=== PATIENT | female | born 1955 | race Caucasian/White ===

== ENCOUNTER 2017-07-27 23:04 | Observation (INO) ==
[2017-07-28] MEDS ORDERED: *HR* OxyCODONE/APAP 10/325 TABLET PO PRN (02:26)
[2017-07-28] MEDS ORDERED: Naloxone 0.4 MG/ML INJ IVP PRN (02:50)
[2017-07-28] MEDS ORDERED: Acetaminophen 325 MG TABLET PO PRN (02:50)
[2017-07-28] MEDS ORDERED: Ipratropium/Albuterol Neb 3 ML IH PRN (02:56)
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
[2017-07-28] MEDS: Ipratropium/Albuterol Neb 3 ML IH SCH ×4 (03:37→22:09)
[2017-07-28 04:31] LABS: BUN/Creatinine Ratio 16 (6-26); Blood Urea Nitrogen 10 mg/dL (8-23); Calcium 8.9 mg/dL (8.6-10.3); Carbon Dioxide 28 mEq/L (23-29); Chloride 104 mEq/L (98-107); Glucose 226 mg/dL (70-105); Magnesium 1.8 mg/dL (1.6-2.6); Osmolality,Calculated 296 (280-300); Potassium 3.7 mEq/L (3.5-5.1); Sodium 140 mEq/L (136-145); eGFR For African Americans > 60 (> 60); eGFR For Non-African Americans > 60 (> 60)
[2017-07-28 04:38] LABS: INR 1.4
[2017-07-28 05:00] LABS: Basophils % 0.2 %; Eosinophils % 0.2 %; Immature Granulocytes % 0.5 % (0-4); Red Cell Distribution Width 14.5 % (11.5-14.5)
[2017-07-28 05:02] LABS: Hematocrit 36.6 % (35.3-44.9); Hemoglobin 11.3 g/dL (11.5-15.4); Immature Platelets 4.6 % (1.1-6.1); Lymphocytes # 0.3 K/mcL (0.6-4.6); Lymphocytes % 5.3 %; Mean Corpuscular HGB Conc 30.9 g/dL (31.6-35.5); Mean Corpuscular Hemoglobin 30.1 pg (28.0-33.3); Mean Corpuscular Volume 97.3 fL (83.0-100.0); Mean Platelet Volume 10.6 fL (9.4-12.4); Monocytes # 0.1 K/mcL (0.0-1.3); Monocytes % 2.2 %; Neutrophils # 5.9 K/mcL (1.6-8.9); Red Blood Count 3.76 M/mcL (3.82-4.97); Segmented Neutrophils % 91.6 %
[2017-07-28 05:09] LABS: Platelet Count 97 K/mcL (140-400)
[2017-07-28] MEDS: *HR* Heparin 5,000 UNIT/ML VIAL SQ SCH ×2 (06:16→17:32)
[2017-07-28] MEDS: *HR* OxyCODONE/APAP 10/325 TABLET PO PRN ×3 (06:28→17:32)
[2017-07-28] MEDS ORDERED: Dextrose Gel 15 GM/37.5 ML TUBE PO PRN ×2 (06:40)
[2017-07-28] MEDS ORDERED: *HR* Dextrose 50 % in Water (Syg) 50 ML SYRINGE IVP PRN (06:40)
[2017-07-28] MEDS ORDERED: D5% in Water 1,000 ML IVC PRN (06:40)
[2017-07-28] MEDS ORDERED: ALPRAZolam 1 MG TABLET PO SCH ×2 (09:00→21:00)
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
[2017-07-28] MEDS: Levofloxacin 750 MG/150 ML 750 MG/150 ML BAG IVPB SCH (09:52)
[2017-07-28] MEDS: methylPREDNISolone 125 MG/2 ML VIAL IVP SCH ×2 (09:53→17:31)
[2017-07-28] MEDS: Magnesium Oxide 400 MG TABLET PO SCH (09:53)
[2017-07-28] MEDS: Insulin LISPRO 300 UNITS/3 ML VIAL SQ SCH ×3 (10:16→17:31)
[2017-07-28] MEDS: Budesonide/Formoterol 160/4.5 MDI IH SCH (10:48)
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
[2017-07-28] MEDS: ALPRAZolam 1 MG TABLET PO PRN (15:05)
[2017-07-28] MEDS: Aspirin Enteric Coated 81 MG Tablet PO SCH (15:10)
[2017-07-28] MEDS ORDERED: Insulin LISPRO 300 UNITS/3 ML VIAL SQ SCH (21:00)
[2017-07-29] MEDS: methylPREDNISolone 125 MG/2 ML VIAL IVP SCH ×2 (00:18→08:41)
[2017-07-29] MEDS: *HR* OxyCODONE/APAP 10/325 TABLET PO PRN ×6 (00:30→22:11)
[2017-07-29] MEDS: Ipratropium/Albuterol Neb 3 ML IH SCH ×4 (03:52→22:22)
[2017-07-29] MEDS: *HR* Heparin 5,000 UNIT/ML VIAL SQ SCH ×2 (04:37→17:33)
[2017-07-29 07:10] LABS: Hematocrit 31.9 % (35.3-44.9); Hemoglobin 10.2 g/dL (11.5-15.4); Immature Granulocytes % 0.3 % (0-4); Lymphocytes # 0.4 K/mcL (0.6-4.6); Lymphocytes % 5.5 %; Mean Corpuscular Hemoglobin 30.6 pg (28.0-33.3); Mean Corpuscular Volume 95.8 fL (83.0-100.0); Mean Platelet Volume 10.6 fL (9.4-12.4); Monocytes # 0.3 K/mcL (0.0-1.3); Monocytes % 3.7 %; Neutrophils # 6.7 K/mcL (1.6-8.9); Platelet Count 103 K/mcL (140-400); Red Blood Count 3.33 M/mcL (3.82-4.97); Red Cell Distribution Width 14.4 % (11.5-14.5); Segmented Neutrophils % 90.5 %
[2017-07-29 07:40] LABS: BUN/Creatinine Ratio 32 (6-26); Blood Urea Nitrogen 20 mg/dL (8-23); Calcium 8.8 mg/dL (8.6-10.3); Carbon Dioxide 28 mEq/L (23-29); Chloride 104 mEq/L (98-107); Glucose 239 mg/dL (70-105); Osmolality,Calculated 294 (280-300); Potassium 4.5 mEq/L (3.5-5.1); Sodium 137 mEq/L (136-145); eGFR For African Americans > 60 (> 60); eGFR For Non-African Americans > 60 (> 60)
[2017-07-29] MEDS: ALPRAZolam 1 MG TABLET PO PRN ×2 (07:42→17:35)
[2017-07-29] MEDS: Magnesium Oxide 400 MG TABLET PO SCH (08:40)
[2017-07-29] MEDS: Aspirin Enteric Coated 81 MG Tablet PO SCH (08:41)
[2017-07-29] MEDS: Levofloxacin 750 MG/150 ML 750 MG/150 ML BAG IVPB SCH (08:42)
[2017-07-29] MEDS: Insulin LISPRO 300 UNITS/3 ML VIAL SQ SCH ×3 (08:49→17:34)
[2017-07-29] MEDS: Budesonide/Formoterol 160/4.5 MDI IH SCH (10:31)
[2017-07-29] MEDS ORDERED: *HR* Dextrose 50 % in Water (Syg) 50 ML SYRINGE IVP PRN (16:26)
[2017-07-29] MEDS ORDERED: D5% in Water 1,000 ML IVC PRN (16:26)
[2017-07-29] MEDS ORDERED: Dextrose Gel 15 GM/37.5 ML TUBE PO PRN ×2 (16:26)
[2017-07-29] MEDS: predniSONE 10 MG TABLET PO SCH (17:34)
[2017-07-29] MEDS ORDERED: GuaiFENesin Liq 200 MG/10 ML UDC PO PRN (18:15)
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
[2017-07-30] MEDS: ALPRAZolam 1 MG TABLET PO PRN ×2 (01:52→10:04)
[2017-07-30] MEDS: *HR* OxyCODONE/APAP 10/325 TABLET PO PRN ×4 (02:13→14:33)
[2017-07-30] MEDS: Ipratropium/Albuterol Neb 3 ML IH SCH ×2 (03:36→11:05)
[2017-07-30] MEDS: *HR* Heparin 5,000 UNIT/ML VIAL SQ SCH (06:23)
[2017-07-30 07:38] VITALS: BP 144/75
[2017-07-30 08:26] LABS: BUN/Creatinine Ratio 32 (6-26); Blood Urea Nitrogen 23 mg/dL (8-23); Calcium 9.2 mg/dL (8.6-10.3); Carbon Dioxide 31 mEq/L (23-29); Chloride 104 mEq/L (98-107); Glucose 203 mg/dL (70-105); Osmolality,Calculated 295 (280-300); Potassium 4.2 mEq/L (3.5-5.1); Sodium 138 mEq/L (136-145); eGFR For African Americans > 60 (> 60); eGFR For Non-African Americans > 60 (> 60)
[2017-07-30 08:35] LABS: Hematocrit 33.5 % (35.3-44.9); Hemoglobin 10.4 g/dL (11.5-15.4); Immature Granulocytes % 0.4 % (0-4); Lymphocytes # 0.5 K/mcL (0.6-4.6); Lymphocytes % 6.1 %; Mean Corpuscular Hemoglobin 30.5 pg (28.0-33.3); Mean Corpuscular Volume 98.2 fL (83.0-100.0); Mean Platelet Volume 10.6 fL (9.4-12.4); Monocytes # 0.4 K/mcL (0.0-1.3); Monocytes % 4.6 %; Neutrophils # 7.4 K/mcL (1.6-8.9); Platelet Count 108 K/mcL (140-400); Red Blood Count 3.41 M/mcL (3.82-4.97); Red Cell Distribution Width 14.6 % (11.5-14.5); Segmented Neutrophils % 88.9 %
[2017-07-30] MEDS: predniSONE 10 MG TABLET PO SCH (10:03)
[2017-07-30] MEDS: Magnesium Oxide 400 MG TABLET PO SCH (10:04)
[2017-07-30] MEDS: Aspirin Enteric Coated 81 MG Tablet PO SCH (10:04)
[2017-07-30] MEDS: Levofloxacin 750 MG/150 ML 750 MG/150 ML BAG IVPB SCH (10:04)
[2017-07-30] MEDS: Insulin LISPRO 300 UNITS/3 ML VIAL SQ SCH ×2 (10:11→12:44)
[2017-07-30] MEDS: Budesonide/Formoterol 160/4.5 MDI IH SCH (11:04)
--- NOTE | 2017-07-30 13:57 | Discharge Summary ---
Date of Encounter: 07/30/17 Time of Encounter: 13:57 Hospital course: Ms. Lee is a 62 year old female - Time Spent with Patient Total time spent providing and/or coordinating discharge services: - Discharge Medications Home Medications: Alprazolam [Xanax] 1 mg PO TID 12/31/14 [History] OxyCODONE/APAP 10/325 [Percocet 10/325] 1 each PO Q4-6H PRN 12/31/14 [History] Oxygen 1 each .ROUTE AD 12/31/14 [History] Omeprazole [PriLOSEC] 40 mg PO DAILY #15 cap 03/30/16 [Rx] Albuterol Neb [Proventil Neb] 2.5 mg IH Q6H PRN 02/22/17 [History] Magnesium Oxide [Mag-Ox] 400 mg PO DAILY #7 tablet 06/30/17 [Rx] Aspirin [Lo-Dose Aspirin EC] 81 mg PO DAILY 07/28/17 [History] Umeclidinium [place] [Incruse Ellipta] 1 puff IH DAILY 07/28/17 [History] Allergies/Adverse Reactions: 3 Allergy/AdvReac Type Severity Reaction Status Date / Time No Known Allergies Allergy Verified 07/05/17 21:16 Date of admission: 07/28/17 03:55 Primary care physician: Ras Mariee MD Consults: 07/28/17 02:21 Consult to Pastoral Services [CONS] Routine Comment: Consult to Foundation Relations Director [CONS] Routine Reason for SW Consult: frequent falls 07/28/17 06:42 Consult to Orthopedic Surgery [CONS] Routine Consulting Provider: [facility] Reason for Consult: L1 and L4 fracture, Dr Hughes was called. Call Completed: Yes 07/28/17 13:16 Consult to Occupational Therapy [CONS] Routine Comment: Evaluate, develop and implement POC Reason for Consult: COMPRESSION FRACTURE OF BACK - Constitutional Vitals: Temp Pulse Resp BP Pulse Ox 98.2 F 99 22 144/75 99 07/30/17 10:44 07/30/17 10:44 07/30/17 10:44 07/30/17 07:31 07/30/17 10:44 General appearance: Present: mild distress, A&O X 3, answers questions appropriately - Discharge Instructions Follow Up With: Mo Bell DO [Partnered Physician] - 08/05/17 2:50 pm Ras Mariee MD [Primary Care Provider] -
--- NOTE | 2017-07-30 14:04 | Physician Discharge Referral ---
Home Health/Hosp Referral Info Attending Provider: Lucretia - Diagnosis (1) Acute exacerbation of chronic obstructive airways disease Priority: Primary Status: Acute (2) Compression deformity of vertebra Priority: Secondary Status: Acute (3) Anterior chest wall pain Priority: Primary Status: Acute - Respiratory Orders Smoking Cessation: Smoking cessation has been advised. For more information, call the [place] Tobacco Quit Line at 1-408-XMDS-NOW. - Diet/Nutrition Diet/Nutrition Orders: Regular - Activity Activity Orders: Ambulate - Services Needed Following services are medically necessary services: Home Health Aide, Physical Therapy, Occupational Therapy - Transfer Medications Prescriptions: levoFLOXacin [Levaquin] 750 mg PO DAILY 5 Days #5 tablet OxyCODONE/APAP 10/325 [Percocet 10/325 MG] 1 each PO Q4H PRN 5 Days #30 tablet PRN Reason: Pain Home Medications: Alprazolam [Xanax] 1 mg PO TID 12/31/14 [History] OxyCODONE/APAP 10/325 [Percocet 10/325] 1 each PO Q4-6H PRN 12/31/14 [History] Oxygen 1 each .ROUTE AD 12/31/14 [History] Omeprazole [PriLOSEC] 40 mg PO DAILY #15 cap 03/30/16 [Rx] Albuterol Neb [Proventil Neb] 2.5 mg IH Q6H PRN 02/22/17 [History] Magnesium Oxide [Mag-Ox] 400 mg PO DAILY #7 tablet 06/30/17 [Rx] Aspirin [Lo-Dose Aspirin EC] 81 mg PO DAILY 07/28/17 [History] Umeclidinium [place] [Incruse Ellipta] 1 puff IH DAILY 07/28/17 [History] OxyCODONE/APAP 10/325 [Percocet 10/325 MG] 1 each PO Q4H PRN 5 Days #30 tablet 07/30/17 [Rx] levoFLOXacin [Levaquin] 750 mg PO DAILY 5 Days #5 tablet 07/30/17 [Rx] Allergies/Adverse Reactions: 3 Allergy/AdvReac Type Severity Reaction Status Date / Time No Known Allergies Allergy Verified 07/05/17 21:16 Certification: Further, I certify that my clinical findings support that this patient is homebound (i.e. absences from home require considerable and taxing effort and are for medical reasons or gnosticist services or infrequently or short duration when for other reasons) because: Homebound Reason: Patient requires assistance of a person or device to safely leave home Attestation: My signature below is to certify that this patient is under my care and that I, or nurse practitioner, or a physician's assistant statistician working with me, has a face-to -face encounter with this patient.
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
[2017-07-31] MEDS ORDERED: levoFLOXacin 750 MG TABLET PO SCH (09:00)
== END 2017-07-30 15:25 | disposition home health service (06) | DRG 140 ==
LOC: 2NENU
PROVIDERS: ADMIT Internal Medicine; ATTEND Internal Medicine

== ENCOUNTER 2019-03-20 19:39 | Inpatient (IN) ==
[2019-03-20] MEDS ORDERED: *HR* Dextrose 50 % in Water (Syg) 50 ML SYRINGE IVP PRN (21:12)
[2019-03-20] MEDS ORDERED: 0.9 % Sodium Chloride w KCl 20 MEQ/1,000 ML MLS IVC SCH (21:15)
[2019-03-20] MEDS ORDERED: Insulin Human Regular 100 UNIT in 0.9 % Sodium Chloride 100 ML IVC SCH (21:15)
[2019-03-20] MEDS ORDERED: Ondansetron ODT 4 MG TAB.RAPDIS SL PRN (21:46)
[2019-03-20] MEDS ORDERED: Naloxone 0.4 MG/ML INJ IVP PRN (21:46)
[2019-03-20] MEDS ORDERED: ALPRAZolam 1 MG TABLET PO ONE (21:56)
[2019-03-20] MEDS ORDERED: *HR* OxyCODONE/APAP 10/325 TABLET PO ONE (21:56)
[2019-03-20 22:14] LABS: VBG HCO3 49 mEq/L (21-27); VBG PCO2 86 mmHg (41-51); VBG PH 7.36 pH Units (7.32-7.42); VBG PO2 70 mmHg (25-50)
[2019-03-20 22:26] LABS: Magnesium 1.8 mg/dL (1.6-2.6); Phosphorous 2.2 mg/dL (2.7-4.5)
[2019-03-20 22:29] LABS: BUN/Creatinine Ratio 29 (6-26); Blood Urea Nitrogen 27 mg/dL (8-23); Calcium 8.8 mg/dL (8.6-10.3); Carbon Dioxide 44 mEq/L (23-29); Chloride 90 mEq/L (98-107); Glucose 145 mg/dL (70-105); Osmolality,Calculated 296 (280-300); Potassium 3.1 mEq/L (3.5-5.1); Sodium 139 mEq/L (136-145); eGFR For African Americans > 60 (> 60); eGFR For Non-African Americans > 60 (> 60)
[2019-03-20 23:02] LABS: Troponin I 0.17 ng/mL (< 0.04)
[2019-03-20] MEDS ORDERED: Artificial Tears SOLN 15 ML BOTTLE BOTH EYES PRN (23:03)
[2019-03-20] MEDS ORDERED: Potassium Phosphate 44 MEQ in 0.9 % Sodium Chloride 250 ML IVPB ONE (23:08)
[2019-03-20] MEDS: D5% in 0.45% NACL w KCl 20 MEQ/1,000 ML MLS IVC PRN (23:30)
[2019-03-21 00:57] LABS: BUN/Creatinine Ratio 28 (6-26); Blood Urea Nitrogen 25 mg/dL (8-23); Calcium 8.3 mg/dL (8.6-10.3); Carbon Dioxide 41 mEq/L (23-29); Chloride 92 mEq/L (98-107); Glucose 103 mg/dL (70-105); Osmolality,Calculated 291 (280-300); Potassium 4.2 mEq/L (3.5-5.1); Sodium 138 mEq/L (136-145); eGFR For African Americans > 60 (> 60); eGFR For Non-African Americans > 60 (> 60)
[2019-03-21] MEDS: D5% in 0.45% NACL w KCl 20 MEQ/1,000 ML MLS IVC PRN ×2 (02:48→06:22)
[2019-03-21 04:26] LABS: Basophils % 0.2 %; Eosinophils % 0.1 %; Hematocrit 32.8 % (35.3-44.9); Hemoglobin 11.3 g/dL (11.5-15.4); Immature Granulocytes % 1.4 % (0-4); Lymphocytes # 0.9 K/mcL (0.6-4.6); Lymphocytes % 9.6 %; Mean Corpuscular HGB Conc 34.5 g/dL (31.6-35.5); Mean Corpuscular Hemoglobin 30.8 pg (28.0-33.3); Mean Corpuscular Volume 89.4 fL (83.0-100.0); Mean Platelet Volume 9.9 fL (9.4-12.4); Monocytes # 0.3 K/mcL (0.0-1.3); Monocytes % 3.6 %; Neutrophils # 7.8 K/mcL (1.6-8.9); Nucleated Red Blood Cells 0.3 /100 WBC (0); Platelet Count 124 K/mcL (140-400); Red Blood Count 3.67 M/mcL (3.82-4.97); Red Cell Distribution Width 12.7 % (11.5-14.5); Segmented Neutrophils % 85.1 %; White Blood Count 9.1 K/mcL (4.3-11.1)
[2019-03-21 04:47] LABS: Magnesium 1.7 mg/dL (1.6-2.6); Phosphorous 3.6 mg/dL (2.7-4.5)
[2019-03-21 05:00] LABS: Thyroid Stimulating Hormone 0.703 mcIU/mL (0.340-5.600)
[2019-03-21 05:01] LABS: Triiodothyronine (T3) Free 2.89 pg/mL (2.50-3.90)
[2019-03-21 05:02] LABS: Amphetamine Screen,Urine Negative ng/mL (Cutoff=1000); Barbiturate Screen,Urine Negative ng/mL (Cutoff=200); Benzodiazepines Screen,Urine Positive ng/mL (Cutoff=200); Cannabinoid Screen,Urine Negative ng/mL (Cutoff = 50); Cocaine Screen,Urine Negative ng/mL (Cutoff= 300); Opiate Screen,Urine Positive ng/mL (Cutoff=300); Phencyclidine Screen,Urine Negative ng/mL (Cutoff=25)
[2019-03-21] MEDS ORDERED: Doxycycline 100 MG VIAL ONE (06:05)
[2019-03-21] MEDS: *HR* Heparin 5,000 UNIT/ML VIAL SQ SCH ×2 (06:11→18:33)
[2019-03-21] MEDS: Doxycycline 100 MG in 0.9 % Sodium Chloride Mini Bag 100 ML IVPB SCH ×2 (06:12→17:02)
[2019-03-21] MEDS: predniSONE 20 MG TABLET PO SCH ×3 (09:58→17:02)
[2019-03-21] MEDS ORDERED: Insulin DETEMIR 100 UNIT/ML X5UNITS SQ ONE (10:12)
[2019-03-21] MEDS ORDERED: D5% in Water 1,000 ML IVC PRN (10:13)
[2019-03-21] MEDS ORDERED: Dextrose Gel 15 GM/37.5 ML TUBE PO PRN ×2 (10:13)
[2019-03-21] MEDS ORDERED: *HR* Dextrose 50 % in Water (Syg) 50 ML SYRINGE IVP PRN (10:13)
[2019-03-21] MEDS: Insulin LISPRO 300 UNITS/3 ML VIAL SQ SCH ×3 (11:08→22:09)
[2019-03-21] MEDS: Cefepime HCl 1,000 MG in Water for inj. (sterile) 10 ML IVP SCH (12:49)
[2019-03-21] MEDS ORDERED: Perflutren Lipid Microsphere 1.3 ML in 0.9 % Sodium Chloride 8.7 ML IVP ONE (14:46)
[2019-03-21] MEDS ORDERED: Perflutren Lipid Microsphere 2 ML VIAL ONE (15:04)
[2019-03-21] MEDS: Ipratropium/Albuterol Neb 3 ML IH SCH ×3 (15:18→20:13)
[2019-03-21] MEDS: Budesonide/Formoterol 160/4.5 1 PUFF INH IH SCH ×2 (15:18→20:13)
[2019-03-21] MEDS ORDERED: *HR* OxyCODONE Immed Rel 5 MG TABLET PO PRN (16:09)
[2019-03-21] MEDS ORDERED: Morphine Sulfate Oral CONC 10 MG/0.5 ML ORAL.SYG PO PRN (16:09)
[2019-03-21] MEDS: ALPRAZolam 0.5 MG TABLET PO SCH ×2 (16:41→20:51)
[2019-03-21] MEDS: Bumetanide 1 MG TABLET PO SCH (17:08)
[2019-03-21] MEDS ORDERED: Ipratropium/Albuterol Neb 3 ML IH SCH (22:02)
[2019-03-21] MEDS: Insulin DETEMIR 100 UNIT/ML X5UNITS SQ SCH (22:12)
[2019-03-21] MEDS ORDERED: Insulin Human Regular 10 UNIT in 0.9 % Sodium Chloride 10 ML IV ONE (23:56)
[2019-03-21] MEDS ORDERED: *HR* OxyCODONE Immed Rel 5 MG TABLET PO ONE (23:57)
[2019-03-22] MEDS: Ipratropium/Albuterol Neb 3 ML IH SCH ×7 (00:30→23:53)
[2019-03-22] MEDS: Cefepime HCl 1,000 MG in Water for inj. (sterile) 10 ML IVP SCH (00:42)
[2019-03-22] MEDS: Doxycycline 100 MG in 0.9 % Sodium Chloride Mini Bag 100 ML IVPB SCH ×2 (06:13→17:34)
[2019-03-22] MEDS: *HR* Heparin 5,000 UNIT/ML VIAL SQ SCH ×2 (06:13→17:33)
[2019-03-22 06:50] LABS: Basophils % 0.2 %; Hematocrit 36.3 % (35.3-44.9); Hemoglobin 12.1 g/dL (11.5-15.4); Immature Granulocytes % 2.1 % (0-4); Lymphocytes # 0.7 K/mcL (0.6-4.6); Lymphocytes % 6.5 %; Mean Corpuscular HGB Conc 33.3 g/dL (31.6-35.5); Mean Corpuscular Hemoglobin 30.7 pg (28.0-33.3); Mean Corpuscular Volume 92.1 fL (83.0-100.0); Mean Platelet Volume 10.1 fL (9.4-12.4); Monocytes # 0.4 K/mcL (0.0-1.3); Monocytes % 3.9 %; Neutrophils # 8.8 K/mcL (1.6-8.9); Nucleated Red Blood Cells 0.2 /100 WBC (0); Platelet Count 133 K/mcL (140-400); Red Blood Count 3.94 M/mcL (3.82-4.97); Red Cell Distribution Width 13.2 % (11.5-14.5); Segmented Neutrophils % 87.3 %; White Blood Count 10.1 K/mcL (4.3-11.1)
[2019-03-22] MEDS: Budesonide/Formoterol 160/4.5 1 PUFF INH IH SCH ×2 (07:20→19:56)
[2019-03-22] MEDS ORDERED: *HR* OxyCODONE Immed Rel 5 MG TABLET PO PRN (07:44)
[2019-03-22 07:48] LABS: BUN/Creatinine Ratio 25 (6-26); Blood Urea Nitrogen 24 mg/dL (8-23); Calcium 8.8 mg/dL (8.6-10.3); Carbon Dioxide 37 mEq/L (23-29); Chloride 95 mEq/L (98-107); Glucose 141 mg/dL (70-105); Magnesium 1.8 mg/dL (1.6-2.6); Osmolality,Calculated 298 (280-300); Phosphorous 2.7 mg/dL (2.7-4.5); Potassium 4.3 mEq/L (3.5-5.1); Sodium 141 mEq/L (136-145); eGFR For African Americans > 60 (> 60); eGFR For Non-African Americans 60 (> 60)
[2019-03-22 08:43] LABS: Estimated Average Glucose 318 mg/dl
[2019-03-22] MEDS ORDERED: Cefepime HCl 2,000 MG in Water for inj. (sterile) 20 ML IVP SCH (09:00)
[2019-03-22] MEDS: Insulin LISPRO 300 UNITS/3 ML VIAL SQ SCH ×4 (09:30→20:24)
[2019-03-22] MEDS: Bumetanide 1 MG TABLET PO SCH ×2 (09:30→17:33)
[2019-03-22] MEDS: ALPRAZolam 0.5 MG TABLET PO SCH ×4 (09:30→20:23)
[2019-03-22] MEDS: Aspirin 81 MG TAB.CHEW PO SCH (09:30)
[2019-03-22] MEDS: Diltiazem CD (24hr) 120 MG CAPSULE PO SCH (09:30)
[2019-03-22] MEDS: predniSONE 20 MG TABLET PO SCH ×2 (09:30→17:33)
[2019-03-22] MEDS: Cefepime HCl 2,000 MG in 0.9 % Sodium Chloride Mini Bag 100 ML IVPB SCH ×2 (09:30→18:35)
[2019-03-22] MEDS: Insulin DETEMIR 100 UNIT/ML X5UNITS SQ SCH (20:23)
[2019-03-22] MEDS ORDERED: predniSONE 20 MG TABLET PO SCH (21:00)
[2019-03-23] MEDS: Ipratropium/Albuterol Neb 3 ML IH SCH ×4 (03:48→16:19)
[2019-03-23] MEDS: Doxycycline 100 MG in 0.9 % Sodium Chloride Mini Bag 100 ML IVPB SCH (05:45)
[2019-03-23] MEDS: *HR* Heparin 5,000 UNIT/ML VIAL SQ SCH (05:45)
[2019-03-23 06:46] LABS: Basophils % 0.3 %; Eosinophils % 0.1 %; Hematocrit 36.9 % (35.3-44.9); Hemoglobin 12.9 g/dL (11.5-15.4); Immature Granulocytes % 1.5 % (0-4); Lymphocytes # 1.5 K/mcL (0.6-4.6); Lymphocytes % 9.7 %; Mean Corpuscular Hemoglobin 30.6 pg (28.0-33.3); Mean Corpuscular Volume 87.4 fL (83.0-100.0); Mean Platelet Volume 10.2 fL (9.4-12.4); Monocytes # 0.6 K/mcL (0.0-1.3); Neutrophils # 13.3 K/mcL (1.6-8.9); Nucleated Red Blood Cells 0.2 /100 WBC (0); Platelet Count 193 K/mcL (140-400); Red Blood Count 4.22 M/mcL (3.82-4.97); Red Cell Distribution Width 13.4 % (11.5-14.5); Segmented Neutrophils % 84.4 %
[2019-03-23 06:47] LABS: Basophils # 0.1 K/mcL (0.0-0.2); White Blood Count 15.7 K/mcL (4.3-11.1)
[2019-03-23] MEDS: Cefepime HCl 2,000 MG in 0.9 % Sodium Chloride Mini Bag 100 ML IVPB SCH (06:51)
[2019-03-23 06:59] LABS: BUN/Creatinine Ratio 30 (6-26); Blood Urea Nitrogen 29 mg/dL (8-23); Calcium 9.4 mg/dL (8.6-10.3); Carbon Dioxide 38 mEq/L (23-29); Chloride 90 mEq/L (98-107); Glucose 73 mg/dL (70-105); Osmolality,Calculated 294 (280-300); Sodium 140 mEq/L (136-145); eGFR For African Americans > 60 (> 60); eGFR For Non-African Americans 58 (> 60)
[2019-03-23] MEDS: Insulin LISPRO 300 UNITS/3 ML VIAL SQ SCH ×2 (08:07→12:46)
[2019-03-23] MEDS: ALPRAZolam 0.5 MG TABLET PO SCH ×2 (08:13→15:08)
[2019-03-23] MEDS: predniSONE 20 MG TABLET PO SCH (08:13)
[2019-03-23] MEDS: Aspirin 81 MG TAB.CHEW PO SCH (08:13)
[2019-03-23] MEDS: Diltiazem CD (24hr) 120 MG CAPSULE PO SCH (08:13)
[2019-03-23 11:08] VITALS: BP 145/76
[2019-03-23] MEDS: Budesonide/Formoterol 160/4.5 1 PUFF INH IH SCH (11:13)
== END 2019-03-23 16:40 | disposition hospice, home (50) | DRG 420 ==
LOC: ICNU → SUATTDRO 03-21 03:37 → CDU 03-21 10:40 → 2ANU 03-21 17:51
PROVIDERS: ADMIT Internal Medicine; ATTEND Internal Medicine